=== PATIENT | male | born 1995 | race Caucasian/White ===

== ENCOUNTER 2019-10-09 13:13 | Emergency (ER) | payer OTHER ==
[2019-10-09] MEDS ORDERED: Tetan/Diph/Pertus SYR(Tdap)* 0.5 ML SYR(BOOSTRIX) use SYR contains LATEX IM ONE (15:20)
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
[2019-10-09] MEDS ORDERED: Ibuprofen TAB* 600 MG PO ONE (15:34)
[2019-10-09 17:44] VITALS: BP 138/76
== END 2019-10-09 17:43 | disposition home or self-care (01) ==
LOC: ED 13:13
DX: S01.81XA Laceration without foreign body of other part of head, initial encounter (principal); S62.101A Fracture of unspecified carpal bone, right wrist, initial encounter for closed fracture; X58.XXXA Exposure to other specified factors, initial encounter; Y93.23 Activity, snow (alpine) (downhill) skiing, snowboarding, sledding, tobogganing and snow tubing; Y92.9 Unspecified place or not applicable
CPT/HCPCS: 12011; 90471; 90715; 99282; A9270-GY